=== PATIENT | female | born 1990 | race Caucasian/White ===

== ENCOUNTER 2017-06-02 12:25 | Emergency (ER) | payer SELFPAY ==
--- NOTE | ~2017-06-02 | ER ---
PATIENT'S NAME: PRASHANT CORONEL [facility] AGE: 27 Y [address] ROOM: [place] [id number] LOCATION: [facility] ADMIT DATE: 06/02/2017 ER/Outpatient Report DISCHARGE DATE: 06/02/2017 FAMILY PHYSICIAN: PHYSICIAN, NO ATTENDING PHYSICIAN: Ba Joyner SEEN AT: 12:45. HISTORY OF PRESENT ILLNESS: A 27-year-old female states her last menstrual period was April 24. She said she is usually regular. However, today, she started having some cramping and was concerned about possible being . She has had no bleeding. She has done a home test within the last week which was negative. ALLERGIES: SHE IS ALLERGIC TO CECLOR AND SULFA. CURRENT MEDICATIONS: None. MEDICAL HISTORY: Includes asthma. SURGERIES: Three C-sections. SOCIAL HISTORY: She does smoke half a pack a day. Denies alcohol. REVIEW OF SYSTEMS: GENERAL: Health is good. HEAD/EENT: Negative. RESPIRATORY: No cough or shortness of breath. CARDIOVASCULAR: She has had no chest pain. GASTROINTESTINAL: Includes some lower abdominal cramping, none here in the emergency room. GENITOURINARY: Last menstrual period, April 24. She has had no bleeding, no dysuria. OBJECTIVE FINDINGS: VITAL SIGNS: Blood pressure 118/72, her respiratory rate is 20, pulse 96, her O2 saturation is 96% on room air. GENERAL APPEARANCE: Alert. No obvious distress. HEAD/EENT: Pupils are equal and reactive to light. Sclerae clear. Nose: PATIENT'S NAME: PRASHANT CORONEL [facility] AGE: 27 Y [address] ROOM: [place] [id number] LOCATION: [facility] ADMIT DATE: 06/02/2017 ER/Outpatient Report DISCHARGE DATE: 06/02/2017 FAMILY PHYSICIAN: PHYSICIAN, NO ATTENDING PHYSICIAN: Ba Joyner Septum midline. Mouth: Teeth in good repair. Buccal membranes moist. LUNGS: Clear. ABDOMEN: Soft. There are no masses palpated. No guarding. No rebound. SKIN: Warm and dry. LABORATORY DATA: Her urine was yellow, clear. She did test positive for blood. Her urine test was negative. ASSESSMENT: Amenorrhea with negative test. PLAN: Recommend ibuprofen today for abdominal cramp concerns. Recommend that if she does not have a period within the next week, she should talk to her primary provider. LAWANDA RACHEL FOR MD VIANNEY ARZOLA/modl /[id number] d: t: 06/02/171954, OUTPATIENT REPORT
[2017-06-02 13:00] LABS: BILIRUBIN URINE NEGATIVE (NEGATIVE); BLOOD URINE 10 /UL (NEGATIVE); COLOR URINE YELLOW (YELLOW); GLUCOSE URINE NEGATIVE (NEGATIVE); KETONE URINE NEGATIVE (NEGATIVE); LEUKOCYTES URINE NEGATIVE /UL (NEGATIVE); NITRITE URINE NEGATIVE (NEGATIVE); PROTEIN URINE NEGATIVE (NEGATIVE); SPEC GRAVITY URINE 1.025 (1.003-1.035); TURBIDITY URINE CLEAR (CLEAR); UROBILINOGEN URINE NORMAL (NORMAL)
[2017-06-02 13:05] LABS: BACTERIA URINE NEGATIVE (NEGATIVE); EPITHELIAL URINE 0-2 #/HPF (NEGATIVE); MUCUS URINE 1+ (NEGATIVE); RBC URINE RARE #/HPF (NEGATIVE); WBC URINE RARE #/HPF (NEGATIVE)
== END 2017-06-02 13:11 | disposition disaster alternative care site (69) ==
LOC: GMED 12:25
PROVIDERS: Physician Assistant Medical
DX: N91.2 Amenorrhea, unspecified (principal); J45.909 Unspecified asthma, uncomplicated; F17.210 Nicotine dependence, cigarettes, uncomplicated; Z98.890 Other specified postprocedural states; Z88.2 Allergy status to sulfonamides; Z88.8 Allergy status to other drugs, medicaments and biological substances